=== PATIENT | male | born 1980 | race Caucasian/White ===

== ENCOUNTER 2018-04-17 14:46 | Emergency (ER) | payer OTHER ==
[2018-04-17 14:56] VITALS: BMI 25.8
--- NOTE | 2018-04-17 17:47 | PDOC ---
Attending Attestation - Resident Resident Name: CathieHetal - ED Attending Attestation I have performed the following: I have examined & evaluated the patient, The case was reviewed & discussed with the resident, I agree w/resident's findings & plan, Exceptions are as noted - HPI HPI: 04/17/18 17:45 37 M with no PMH presents to ED seeking detox from PCP. Pt states he is daily PCP user. Last use was this morning. Pt is accompanied by his mother, who reports that pt has two children and is unable to care for them while he is high. She reports that he behaves erratically when he smokes PCP. Pt denies any SI/HI/AVH. Denies any other substance use. - Physicial Exam PE: 04/17/18 17:46 GENERAL: Awake, alert, and fully oriented, in no acute distress. HEAD: No signs of trauma EYES: PERRLA, EOMI, sclera anicteric, conjunctiva clear ENT: Auricles normal inspection, hearing grossly normal, nares patent, oropharynx clear without exudates. Moist mucosa NECK: Nontender, no stepoffs, Normal ROM, supple, no lymphadenopathy, JVD, or masses LUNGS: Breath sounds equal, clear to auscultation bilaterally. No wheezes, and no crackles HEART: Regular rate and rhythm, normal S1 and S2, no murmurs, rubs or gallops ABDOMEN: Soft, nontender, normoactive bowel sounds. No guarding, no rebound. No masses EXTREMITIES: Normal range of motion, no edema. No clubbing or cyanosis. No cords, erythema, or tenderness NEUROLOGICAL: Cranial nerves II through XII intact. 5/5 strength and sensation in all extremities, Normal speech, normal gait, normal cerebellar function SKIN: Warm, Dry, normal turgor, no rashes or lesions noted. - Medical Decision Making 04/17/18 17:46 37 M presenting for PCP detox. Pt is clinically sober at this time, with no SI/ HI/AVH. - Will reach out to [facility] regarding detox 04/17/18 18:01 [facility] does not offer detox for PCP, pt will need to register for rehab Will reach out to other detox facilities in the area 04/17/18 18:49 Pt given resources for detox facilities Pt is well appearing, with normal vitals. Clinically stable for DC at this time. I discussed the physical exam findings, ancillary test results and final diagnoses with the patient. I answered all of the patient's questions. The patient was satisfied with the care received and felt comfortable with the discharge plan and treatment plan. The patient agrees to follow up with the primary care physician within 24-72 hours.
[2018-04-17 19:50] LABS: COCAINE, UR NEGATIVE ng/ml (CUTOFF=300); METHADONE, UR NEGATIVE ng/ml (CUTOFF=300); OPIATES, URI NEGATIVE ng/ml (CUTOFF=300); URINE AMPHETAMINES NEGATIVE ng/ml (CUTOFF=500); URINE BARBITURATES NEGATIVE ng/ml (CUTOFF=200); URINE BENZODIAZEPINES NEGATIVE ng/ml (CUTOFF=200)
--- NOTE | 2018-04-17 20:27 | PDOC ---
History of Present Illness - General Chief Complaint: Substance Abuse Stated Complaint: DETOX Time Seen by Provider: 04/17/18 16:59 History Source: Patient, Parent(s) (mother) Exam Limitations: No Limitations - History of Present Illness Initial Comments: 04/20/18 01:35 Pt is a 37yo M with no significant PMH presenting to ED with mother for detox. Per mother pt has been using PCP and has been "scaring the children and his ". Mother states he can get erratic and makes his family feel unsafe. Pt said he last used this morning. Denies SI/HI, hallucinations, chest pain, headache, SOB, syncope, palpitations, abdominal pain, n/v/d, IV drug use, alcohol use. Past History - Past Medical History Allergies/Adverse Reactions: Allergies Allergy/AdvReac Type Severity Reaction Status Date / Time No Known Allergies Allergy Verified 04/17/18 14:56 COPD: No Diabetes: No GI Disorders: No - Surgical History GI Surgery: No - Immunization History Immunization Up to Date: No - Suicide/Smoking/Psychosocial Hx Smoking History: Current every day smoker Have you smoked in the past 12 months: No Information on smoking cessation initiated: No Hx Alcohol Use: Yes Drug/Substance Use Hx: Yes Review of Systems - Review of Systems Constitutional: No: Symptoms Reported HEENTM: No: Symptoms Reported Respiratory: No: Symptoms reported Cardiac (ROS): No: Symptoms Reported ABD/GI: No: Symptoms Reported : No: Symptoms Reported Musculoskeletal: No: Symptoms Reported Integumentary: No: Symptoms Reported Neurological: No: Symptoms reported Psychiatric: No: Anxiety, Depression, Emotional Problems *Physical Exam - Vital Signs Last Vital Signs Temp Pulse Resp BP Pulse Ox 98.9 F 102 H 16 139/89 99 04/17/18 14:52 04/17/18 14:52 04/17/18 14:52 04/17/18 14:52 04/17/18 14:52 - Physical Exam General Appearance: Yes: Nourished, Appropriately Dressed, Disheveled (slightly desheveled) HEENT: positive: EOMI, NELLY, Normal ENT Inspection, Symmetrical, Pharynx Normal , Other (no nystagmus). negative: Scleral Icterus (R), Scleral Icterus (L) Neck: positive: Trachea midline, Supple. negative: Lymphadenopathy (R), Lymphadenopathy (L) Respiratory/Chest: positive: Lungs Clear, Normal Breath Sounds. negative: Crackles, Rales, Wheezing Cardiovascular: positive: Regular Rhythm, S1, S2, Tachycardia. negative: JVD, Murmur Vascular Pulses: Carotid (R): 2+, Carotid (L): 2+, Dorsalis-Pedis (R): 2+, Doralis-Pedis (L): 2+ Gastrointestinal/Abdominal: positive: Normal Bowel Sounds, Soft. negative: Distended, Guarding, Rebound, Tenderness Musculoskeletal: positive: Normal Inspection. negative: CVA Tenderness Extremity: positive: Normal Capillary Refill Integumentary: positive: Normal Color, Dry, Warm Neurologic: positive: refractory manager II-XII NML intact, Fully Oriented, Alert, Normal Mood/ Affect, Normal Response, Motor Strength 5/5 Moderate Sedation - Procedure Monitoring Vital Signs: Procedure Monitoring Vital Signs Temperature 98.9 F 04/17/18 14:52 Pulse Rate 102 H 04/17/18 14:52 Respiratory Rate 16 04/17/18 14:52 Blood Pressure 139/89 04/17/18 14:52 O2 Sat by Pulse Oximetry (%) 99 04/17/18 14:52 ED Treatment Course - ADDITIONAL ORDERS Additional order review: Laboratory Results 04/17/18 19:00 Opiates Screen Negative Methadone Screen Negative Barbiturate Screen Negative Ur Amphetamines Screen Negative MDMA (Ecstasy) Screen Negative Benzodiazepines Screen Negative Cocaine Screen Negative Medical Decision Making - Medical Decision Making 04/20/18 01:38 Pt is a 37yo M with no significant PMH presenting to ED with mother for detox. Does not appear to have signs of acute intoxication. Pt is alert and oriented. Utox ordered. Positive for marijuana and PCP. [facility] does not accept detox from PCP. Called [facility]. Accepts walk ins starting at 8am. Mother and patient agree to going to [facility]. Will DC. Given instructions on how to get to [facility]. and given strict return precautions. At this time mother states pt is not a threat to family members. 04/20/18 01:39 *DC/Admit/Observation/Transfer Diagnosis at time of Disposition: Substance use disorder - Discharge Dispostion Disposition: HOME Condition at time of disposition: Good Decision to Admit order: No - Referrals Referrals: Nir García [Primary Care Provider] - - Patient Instructions Additional Instructions: You were seen here today because you were interested in detox. I called [facility] and they take walk-ins every day at 8am. Please to to [address] [place] [address] at 8am. Please come back to the emergency room if you start to use again, if you develop fever, if you pass out, if you do not feel safe or if any new concerning symptom develops. - Post Discharge Activity
[2018-04-17 20:37] VITALS: BP 131/77; PULSE 98; TEMP 98.2
[2018-04-17 20:58] LABS: PHENCYCLIDINE,URINE POSITIVE ng/ml (CUTOFF=25)
== END 2018-04-17 20:37 | disposition home or self-care (01) ==
LOC: JER 14:46
DX: Z13.89 Encounter for screening for other disorder (principal)
CPT/HCPCS: 80307; 99282-25

== ENCOUNTER 2019-06-03 04:15 | Emergency (ER) | payer SELFPAY ==
[2019-06-03] MEDS ORDERED: LORazepam 2 MG/ML SDV VIAL ONE (04:22)
[2019-06-03] MEDS ORDERED: HALOPERIDOL LACTATE 5 MG/ML ONE (04:22)
[2019-06-03] MEDS ORDERED: HALOPERIDOL LACTATE 5 MG/ML IM ONE (04:23)
[2019-06-03] MEDS ORDERED: SODIUM CHLORIDE 1,000 ML IV STA (04:24)
--- NOTE | 2019-06-03 04:26 | PDOC ---
Attending Attestation - Resident Resident Name: Bismark Mosher - ED Attending Attestation I have performed the following: I have examined & evaluated the patient, The case was reviewed & discussed with the resident, I agree w/resident's findings & plan - HPI HPI: 06/03/19 04:44 see resident hpi - Physicial Exam PE: 06/03/19 04:44 see resident exam - Medical Decision Making 06/03/19 04:45 38-year-old male with altered mental status wandering around the streets and combative On arrival patient has visible nystagmus, he is argumentative Previous chart reviewed and patient does have a history of PCP abuse Patient began to remove clothing, aggressive towards staff and would not allow blood draw Patient sedated, plan for CT scan of the brain, labs to rule out rhabdomyolysis and reevaluation
[2019-06-03 04:30] VITALS: BMI 23.6
--- NOTE | 2019-06-03 04:40 | PDOC ---
History of Present Illness - General Chief Complaint: Alcohol intoxication Stated Complaint: INTOX Time Seen by Provider: 06/03/19 04:26 History Source: Patient, EMS Exam Limitations: No Limitations - History of Present Illness Initial Comments: 06/03/19 04:40 38 yo male pmh of substance abuse including PCP presents via EMS after being found wandering the streets tonight. Pt noted to become combative, [employer] escort pt to the ED. Pt AOX2, denies using any illicit drugs or alcohol tonight, not cooperative with questions or exam. ROS limited Past History - Past Medical History Allergies/Adverse Reactions: Allergies Allergy/AdvReac Type Severity Reaction Status Date / Time No Known Allergies Allergy Verified 06/03/19 04:30 COPD: No Diabetes: No GI Disorders: No - Surgical History GI Surgery: No - Immunization History Immunization Up to Date: No - Psycho Social/Smoking Cessation Hx Smoking History: Current some day smoker Have you smoked in the past 12 months: No Information on smoking cessation initiated: No Hx Alcohol Use: Yes Drug/Substance Use Hx: Yes Review of Systems - Review of Systems Able to Perform ROS?: No (AMS ) *Physical Exam - Vital Signs Last Vital Signs Temp Pulse Resp BP Pulse Ox 98.0 F 96 H 17 172/94 H 97 06/03/19 04:20 06/03/19 04:20 06/03/19 04:20 06/03/19 04:20 06/03/19 04:20 - Physical Exam General Appearance: Yes: Nourished, Appropriately Dressed. No: Apparent Distress HEENT: positive: EOMI, Normal ENT Inspection, Pharynx Normal, Other (rotary nystagmus) Neck: positive: Supple. negative: Carotid bruit Respiratory/Chest: positive: Lungs Clear, Normal Breath Sounds. negative: Respiratory Distress, Accessory Muscle Use, Rapid RR, Crackles, Rales, Rhonchi, Stridor, Wheezing Cardiovascular: positive: Regular Rhythm, Regular Rate, S1, S2. negative: Edema , JVD, Murmur Vascular Pulses: Dorsalis-Pedis (R): 4+, Doralis-Pedis (L): 4+ Gastrointestinal/Abdominal: positive: Flat, Soft. negative: Pulsatile Mass, Protuberent, Distended, Guarding, Rebound, Tenderness Musculoskeletal: negative: CVA Tenderness Extremity: positive: Normal Capillary Refill, Normal Inspection, Normal Range of Motion Integumentary: positive: Normal Color, Dry, Warm, Other (no signs of trauma to head or body ) Neurologic: positive: coppersmith apprentice II-XII NML intact, Alert, Motor Strength 5/5, Confused , Disoriented, Other (moving all extremities, equal bilateral pulses in upper and lower ext). negative: Fully Oriented, Normal Mood/Affect, Normal Response, Facial Droop, Sensory Deficit ED Treatment Course - LABORATORY CBC & Chemistry Diagram: 06/03/19 04:27 06/03/19 04:27 Medical Decision Making - Medical Decision Making 06/03/19 04:44 38 yo male pmh of substance abuse including PCP presents via EMS after being found wandering the streets tonight. Pt noted to become combative, [employer] escort pt to the ED. Pt AOX2, denies using any illicit drugs or alcohol tonight, not cooperative with questions or exam. ROS limited vitals stable Pt brought into resuscitation room immediately on arrival, undressed, vitals taken and IV line placed Pt not cooperative with exam, security called incase pt becomes combative again pt attempts to leave the room on multiple occasions, not cooperative with exam. Pt informed that chemical and physical restraints may be forced onto him if he continues to be uncooperative. Benadryl, haldol and ativan ordered and given 06/03/19 06:[address] head/C spine read CLinically has PCP intox will s/o to day team for further care and dispo Discharge - Discharge Information Problems reviewed: Yes Clinical Impression/Diagnosis: Intoxication Condition: Fair - Follow up/Referral - Patient Discharge Instructions - Post Discharge Activity
[2019-06-03 04:59] LABS: BASO % 1.3 % (0-2.0); EOS % 1.5 % (0-4.5); HEMATOCRIT 43.6 % (35.4-49); HEMOGLOBIN 14.3 GM/dL (11.7-16.9); LYMPH % 25.9 % (8-40); MCH 29.2 pg (25.7-33.7); MCHC 32.7 g/dl (32.0-35.9); MEAN CELL VOLUME 89.2 fl (80-96); MEAN PLT VOLUME 9.1 fl (7.5-11.1); MONO % 6.5 % (3.8-10.2); NEUT % 64.8 % (42.8-82.8); PLATELET COUNT 283 K/MM3 (134-434); RBC 4.89 M/mm3 (4.00-5.60); RDW 14.6 % (11.9-15.9)
[2019-06-03 05:24] LABS: INR 0.91 (0.83-1.09); PROTHROMBIN TIME (PATIENT) 10.7 SEC (9.7-13.0)
[2019-06-03 05:27] LABS: ACTIVATED PTT 29.1 SECONDS (25.2-36.5)
[2019-06-03 05:41] LABS: ALBUMIN 4.8 g/dl (3.4-5.0); ALK PHOS 80 U/L (45-117); ANION GAP 11 MMOL/L (8-16); BILIRUBIN,TOTAL 0.6 mg/dL (0.2-1); BLOOD UREA NITROGEN 12.1 mg/dL (7-18); CALCIUM 9.5 mg/dL (8.5-10.1); CHLORIDE 103 mmol/L (98-107); CO2 23 mmol/L (21-32); CREATININE 0.8 mg/dL (0.55-1.3); GLUCOSE,RANDOM 107 mg/dL (74-106); POTASSIUM 3.7 mmol/L (3.5-5.1); SGOT/AST 44 U/L (15-37); SGPT/ALT 39 U/L (13-61); SODIUM 138 mmol/L (136-145); TOT PROT 8.6 g/dl (6.4-8.2)
--- NOTE | 2019-06-03 07:14 | PDOC ---
*Physical Exam - Vital Signs Last Vital Signs Temp Pulse Resp BP Pulse Ox 97.4 F L 78 14 98/65 100 06/03/19 04:56 06/03/19 05:42 06/03/19 05:42 06/03/19 05:42 06/03/19 04:56 ED Treatment Course - LABORATORY CBC & Chemistry Diagram: 06/03/19 04:27 06/03/19 04:27 - ADDITIONAL ORDERS Additional order review: Laboratory Results 06/03/19 06/03/19 04:27 04:27 PT with INR 10.70 INR 0.91 PTT (Actin FS) 29.1 Sodium 138 Potassium 3.7 Chloride 103 Carbon Dioxide 23 Anion Gap 11 BUN 12.1 Creatinine 0.8 Est GFR (CKD-EPI)AfAm 129.51 Est GFR (CKD-EPI)NonAf 111.74 Random Glucose 107 H Calcium 9.5 Total Bilirubin 0.6 AST 44 H ALT 39 Alkaline Phosphatase 80 Creatine Kinase 370 H Creatine Kinase Index 1.3 CK-MB (CK-2) 5.0 H Troponin I < 0.02 Total Protein 8.6 H Albumin 4.8 06/03/19 04:27 RBC 4.89 MCV 89.2 MCHC 32.7 RDW 14.6 MPV 9.1 Neutrophils % 64.8 Lymphocytes % 25.9 Monocytes % 6.5 Eosinophils % 1.5 Basophils % 1.3 - Medications Given in the ED: ED Medications Discontinued Medications Generic Name Dose Route Start Last Admin Trade Name Freq PRN Reason Stop Dose Admin Diphenhydramine HCl 25 mg 06/03/19 04:29 06/03/19 04:40 Benadryl Injection - IVPUSH 06/03/19 04:30 25 mg ONCE ONE Administration Haloperidol 5 mg 06/03/19 04:23 06/03/19 04:40 Haldol Injection (Fast Acting) - IM 06/03/19 04:24 5 mg ONCE ONE Administration Sodium Chloride 1,000 mls @ 1,000 mls/hr 06/03/19 04:24 06/03/19 04:40 Normal Saline - IV 06/03/19 05:23 1,000 mls/hr ASDIR STA Administration Lorazepam 2 mg 06/03/19 04:23 06/03/19 04:40 Ativan Injection - IM 06/03/19 04:24 2 mg ONCE ONE Administration Medical Decision Making - Medical Decision Making 06/03/19 07:14 Received sign out from night team. 38yo M hx polysubstance abuse including PCP per chart review BIBA combative, found wandering streets, A&Ox2, uncooperative. Given benadryl, haldol, and ativan Labs reviewed. No concerning findings. EKG reviewed. No concerning findings. CTH/c-spine reviewed: no acute pathology Dispo: pending clinical sobriety and reassessment Pt seen and assessed at bedside. Sleeping comfortably, responsive to pain only, VSS. 06/03/19 09:38 Pt still sleeping comfortably, responsive to pain only, VSS. 06/03/19 10:14 Pt sleeping comfortable. Wakes with sternal rub. Responds to questions but with incoherent mumbling. VSS. 06/03/19 11:27 Pt alert, sitting up, comfortable, ambulates with steady gait, normal speech without slurring or mumbling, A&Ox3 (name, hospital, month), remembers doing PCP yesterday and going to mother's house but doesn't remember what happened last PM. Feels fine now, asymptomatic, denies all ROS, wants to go home. Clinically sober and safe for discharge. Pt states he has a PCP and can get home safely. Will discharge home with PCP f/u. Return precautions given. Pt understands all discharge instructions and all questions were answered. Discharge - Discharge Information Problems reviewed: Yes Clinical Impression/Diagnosis: Intoxication, PCP (phencyclidine) abuse Condition: Improved Disposition: HOME - Admission No - Follow up/Referral - Patient Discharge Instructions Additional Instructions: You have been seen in the Emergency Department for your PCP overdose. You recovered with rest. Follow-up with your primary care doctor within 1 week. As you know, PCP and other drug use is dangerous and can cause many dangerous health problems including but not limited to and permanent disability. Stop using drugs. Good luck on your recovery! Return to the ED immediately if you experience another overdose, chest pain, difficulty breathing, dizziness, or any other new or worsening symptom. - Post Discharge Activity
[2019-06-03 08:38] VITALS: BP 131/84; PULSE 80; TEMP 97.2
--- NOTE | 2019-06-03 10:33 | EKG ---
Test Reason : Blood Pressure : / mmHG Vent. Rate : 078 BPM Atrial Rate : 078 BPM P-R Int : 144 ms QRS Dur : 092 ms QT Int : 416 ms P-R-T Axes : 077 040 059 degrees QTc Int : 474 ms NORMAL SINUS RHYTHM NORMAL ECG NO PREVIOUS ECGS AVAILABLE Confirmed by Benigno Velazquez MD ([id number]) on 06/03/2019 10:32:58 AM Referred By: Confirmed By:Benigno Velazquez MD
== END 2019-06-03 11:31 | disposition home or self-care (01) ==
LOC: JER 04:15
PROC: 3E033GC Introduction of Other Therapeutic Substance into Peripheral Vein, Percutaneous Approach (ICD-10-PCS; principal; 2019-06-03)
PROC: 3E023NZ Introduction of Analgesics, Hypnotics, Sedatives into Muscle, Percutaneous Approach (ICD-10-PCS; 2019-06-03)
PROC: 3E023NZ Introduction of Analgesics, Hypnotics, Sedatives into Muscle, Percutaneous Approach (ICD-10-PCS; 2019-06-03)
DX: F10.120 Alcohol abuse with intoxication, uncomplicated (principal); F16.10 Hallucinogen abuse, uncomplicated; F17.210 Nicotine dependence, cigarettes, uncomplicated
CPT/HCPCS: 36415; 70450-TC; 72125-TC; 80053; 82550; 82553; 84484; 85025; 85610; 85730; 93005; 93010; 99285-25; J7030

== ENCOUNTER 2019-12-13 02:40 | Emergency (ER) | payer OTHER ==
[2019-12-13 02:46] VITALS: BMI 25.1
--- NOTE | 2019-12-13 02:51 | PDOC ---
History of Present Illness - General Chief Complaint: Alcohol intoxication Stated Complaint: ABD PAIN Time Seen by Provider: 12/13/19 02:51 History Source: Patient, EMS, Old Records Exam Limitations: No Limitations - History of Present Illness Initial Comments: 12/13/19 02:51 39M ETOH use disorder appears intoxicated, limiting HPI called ambulance for right groin/flank pain denies urinary sx no PSH no known history of hernia has never had pain like this before not worse with movement no injury to leg says he drinks 2 beers per night had 2 beers last night no N/V/C/D denies fevers, chills, chest pain, SOB denies syncope/fall Past History - Medical History Allergies/Adverse Reactions: Allergies Allergy/AdvReac Type Severity Reaction Status Date / Time No Known Allergies Allergy Verified 12/13/19 02:44 Home Medications: Ambulatory Orders NK [No Known Home Medication] 12/13/19 COPD: No Diabetes: No GI Disorders: No - Surgical History GI Surgery: No - Immunization History Immunization Up to Date: No - Psycho-Social/Smoking History Smoking History: Current every day smoker Have you smoked in the past 12 months: Yes Number of Cigarettes Smoked Daily: 10 Information on smoking cessation initiated: No - Substance Abuse Hx (Audit-C & DAST Scrn) How often the patient has a drink containing alcohol: 4 0r more times/wk Number of drinks the patient has on a typical day: 3 or 4 How often the patient has six or more drinks on one occasion: Never Score: In Men: 4 or > Positive; In Women: 3 or > Positive: 5 Screen Result (Pos requires Nsg. Audit-10AR): Positive In the last yr the pt used illegal drug/Rx for NonMed reason: No Score: Yes response is considered Positive: 0 Screen Result (Positive result requires Nsg. DAST-10): Negative Review of Systems - Review of Systems Able to Perform ROS?: Yes Constitutional: No: Chills, Diaphoresis, Fever, Malaise, Night Sweats HEENTM: No: Symptoms Reported Respiratory: No: Cough, Shortness of Breath, SOB with Exertion, SOB at Rest, Wheezing Cardiac (ROS): No: Chest Pain, Lightheadedness, Palpitations, Syncope ABD/GI: Yes: Abdominal cramping. No: Blood Streaked Bowels, Constipated, Diarrhea, Nausea, Poor Appetite, Poor Fluid Intake, Vomiting : No: Symptoms Reported Musculoskeletal: No: Symptoms Reported Integumentary: No: Symptoms Reported Neurological: No: Symptoms reported Endocrine: No: Symptoms Reported Hematologic/Lymphatic: No: Symptoms Reported All Other Systems: Reviewed and Negative *Physical Exam - Vital Signs Last Vital Signs Temp Pulse Resp BP Pulse Ox 97.6 F 63 17 132/89 98 12/13/19 02:45 12/13/19 02:45 12/13/19 02:45 12/13/19 02:45 12/13/19 02:45 - Physical Exam General Appearance: Yes: Nourished, Appropriately Dressed, Other (resting in bed, in NAD, mildly slurred speech). No: Apparent Distress HEENT: positive: EOMI, NELLY, Normal Voice, Symmetrical, Pharynx Normal, Hearing Grossly Normal. negative: Scleral Icterus (R), Scleral Icterus (L), Pharyngeal Erythema, Tonsillar Exudate, Tonsillar Erythema Neck: positive: Normal Thyroid, Supple. negative: Tender, Rigid, Decreased range of motion, Lymphadenopathy (R), Lymphadenopathy (L), Tender lateral, Tender midline Respiratory/Chest: positive: Lungs Clear, Normal Breath Sounds. negative: Chest Tender, Respiratory Distress, Accessory Muscle Use, Crackles, Rales, Rhonchi, Stridor, Wheezing Cardiovascular: positive: Regular Rhythm, Regular Rate. negative: Murmur, Tachycardia Gastrointestinal/Abdominal: positive: Normal Bowel Sounds, Flat, Soft. negative: Tender, Organomegaly, Pulsatile Mass, Guarding, Rebound Musculoskeletal: positive: Normal Inspection. negative: CVA Tenderness, CVA Tenderness (R), CVA Tenderness (L), Vertebral Tenderness Extremity: positive: Normal Capillary Refill, Normal Inspection, Normal Range of Motion, Pelvis Stable. negative: Tender, Pedal Edema, Swelling, Calf Tenderness Integumentary: positive: Normal Color, Dry, Warm. negative: Cold, Clammy, Diaphoresis Neurologic: positive: aviation electronic warfare operator II-XII NML intact, Fully Oriented, Alert, Motor Strength 5/5, Other (no asterixis). negative: Normal Mood/Affect, Normal Response ED Treatment Course - LABORATORY CBC & Chemistry Diagram: 12/13/19 04:45 12/13/19 06:30 - RADIOLOGY Radiograph Interpretation: 12/13/19 06:59 Alexsander Marks MD wrote on Dec 13, 2019 at 06:44 AM: Referring Physician: JEET HAMLIN RESIDENT Patient Name: SULAIMAN GUERRERO THIS IS A PRELIMINARY REPORT DATE OF SERVICE: 2019-12-13 06:09:40 IMAGES: [id number] EXAM: ABDOMEN \T\ PELVIS CT WITH IV CONTRAST One or more of the following dose reduction techniques was utilized: Automated exposure control, adjustment of the mA and or kVp according to patient's size, use of an iterative reconstruction technique. CTDIvol(mGy) = 0.14, 0.14, 7.64 Total DLP (mGycm) = 380.7 CONTRAST: 100 cc of Omnipaque 350 utilized IV. HISTORY: Right lower quadrant pain. 39-year-old male. COMPARISON: None. FINDINGS: The scanogram is nondiagnostic and utilized for anatomic location of scanning. Cardiac silhouette is normal in appearance. Lung bases are clear. Uniform attenuation and enhancement is seen throughout the liver, spleen and pancreas. No ductal dilatation, mass or cystic change. Normal gallbladder is present in the right upper quadrant. No adrenal masses. Good excretion of IV contrast by both kidneys is present without hydronephrosis, mass or cystic change. No retroperitoneal adenopathy or fibrosis. No abnormality of the aorta or IVC. Stomach, small bowel and colon show no evidence of bowel wall thickening. No acute inflammatory changes the right or left lower quadrant. No evidence of obstruction or ileus. The terminal ileum is normal in the right lower quadrant. Pelvic CT shows the appendix in the right lower quadrant to be normal in appearance. No diverticular disease. No acute inflammatory changes in the true pelvis. No pelvic adenopathy or free fluid in the true pelvis. The prostate gland and seminal vesicles are normal in appearance. Urinary bladder is normal in appearance. No evidence of distal ureterolithiasis or ureteral dilatation. The perivesicular and perirectal fat are well-preserved. No bone or surrounding soft tissue abnormality. IMPRESSION Normal CT of the abdomen and pelvis. No evidence of bowel obstruction or ileus. No acute inflammatory changes in the right or left lower quadrants. The appendix is well seen. One or more of the following dose reduction techniques were used: automated exposure control, adjustment of the mA and/or kV according to patient size, use of iterative reconstructive technique. Medical Decision Making - Medical Decision Making 12/13/19 05:34 Patient intoxicated with PMH EtOH use disorder, complaining of right abdomen/groin pain. Non-tender on exam of groin and testicles, no obvious hernia, resting comfortably in bed in NAD. Low suspicion of withdrawal, no symptoms at this time, still intoxicated. VSS. Ddx includes hernia vs. epididymitis vs. renal calculus vs. appendicitis vs. GB pathology. Ordering CBC/CMP/lipase/UA/UC with CTAP with IV contrast. Also RUQ US in the AM for eval GB pathology given R-sided pain. Labs notable for: - CBC WNL - lipase WNL - K hemolyzed, sending repeat - remaining labs unremarkable CTAP unremarkable for acute pathology. 12/13/19 07:20 Signed out to day team. Plan to f/u US and repeat K. Discharge - Discharge Information Problems reviewed: Yes Clinical Impression/Diagnosis: Intoxication Abdominal pain Qualifiers: Abdominal location: right upper quadrant Qualified Code(s): R10.11 - Right upper quadrant pain Condition: Improved Disposition: HOME - Follow up/Referral - Patient Discharge Instructions Additional Instructions: You were seen in the ER for abdominal pain. Your EKG, labs, and imaging did not show any emergent problem. You should follow up with your primary doctor within one week. Please return to the ER for new, persistent, or worsening symptoms, fever, vomiting, or any other problem. - Post Discharge Activity
--- NOTE | 2019-12-13 02:53 | PDOC ---
Attending Attestation - Resident Resident Name: Pedro Lobo - ED Attending Attestation I have performed the following: I have examined & evaluated the patient, The case was reviewed & discussed with the resident, I agree w/resident's findings & plan - HPI HPI: 12/13/19 05:02 Pt comes with right sided abd pain. Pt is an alcoholic. Afebrile - Physicial Exam PE: 12/13/19 05:03 Pt has RUQ pain. Enlarged liver with tip beneath the right costal margin 12/13/19 19:48 AGree with resident exam - Medical Decision Making 12/13/19 05:04 Pt will have labs, sono of the RUQ and CT as needed. 12/13/19 05:06 Pt will be signed out to the day ER team to continue his workup. 12/13/19 06:58 chem hemolyzed; it was repeated Discharge - Discharge Information Problems reviewed: Yes Clinical Impression/Diagnosis: Intoxication Abdominal pain Qualifiers: Abdominal location: right upper quadrant Qualified Code(s): R10.11 - Right upper quadrant pain Condition: Improved Disposition: HOME - Follow up/Referral - Patient Discharge Instructions Additional Instructions: You were seen in the ER for abdominal pain. Your EKG, labs, and imaging did not show any emergent problem. You should follow up with your primary doctor within one week. Please return to the ER for new, persistent, or worsening symptoms, fever, vomiting, or any other problem. - Post Discharge Activity
[2019-12-13 05:07] LABS: BASO % 1.4 % (0-2.0); EOS % 5.1 % (0-4.5); HEMOGLOBIN 14.1 GM/dL (11.7-16.9); LYMPH % 38.7 % (8-40); MCH 30.5 pg (25.7-33.7); MCHC 33.5 g/dl (32.0-35.9); MEAN CELL VOLUME 90.8 fl (80-96); MEAN PLT VOLUME 8.2 fl (7.5-11.1); MONO % 10.3 % (3.8-10.2); NEUT % 44.5 % (42.8-82.8); PLATELET COUNT 258 K/MM3 (134-434); RBC 4.62 M/mm3 (4.00-5.60); RDW 13.9 % (11.9-15.9); WHITE BLOOD COUNT 5.6 K/mm3 (4.0-10.0)
[2019-12-13 07:10] LABS: ALBUMIN 4.2 g/dl (3.4-5.0); BILIRUBIN,TOTAL 0.2 mg/dL (0.2-1); BLOOD UREA NITROGEN 13.7 mg/dL (7-18); CALCIUM 8.6 mg/dL (8.5-10.1); CREATININE 0.9 mg/dL (0.55-1.3); TOT PROT 7.9 g/dl (6.4-8.2)
--- NOTE | 2019-12-13 08:37 | PDOC ---
*Physical Exam - Vital Signs Last Vital Signs Temp Pulse Resp BP Pulse Ox 97.6 F 80 18 117/76 97 12/13/19 02:45 12/13/19 06:36 12/13/19 06:36 12/13/19 06:36 12/13/19 06:36 - Physical Exam 12/13/19 08:35 Repeat K normal. No acute findings on CT A/P or abdominal ultrasound. Patient still has RUQ tenderness, but abdomen is soft without guarding or rebound. EKG: NSR, rate 61, normal axis and intervals, no ischemic changes. AAOx3, speaking full sentences, tolerating PO, walking in straight line. No tremors DC home 12/13/19 08:37 12/13/19 08:44 12/13/19 16:09 ED Treatment Course - LABORATORY CBC & Chemistry Diagram: 12/13/19 04:45 12/13/19 06:30 - ADDITIONAL ORDERS Additional order review: Laboratory Results 12/13/19 12/13/19 06:30 04:45 Sodium 141 Cancelled Potassium 4.0 Cancelled Chloride 105 Cancelled Carbon Dioxide 31 Cancelled Anion Gap 6 L Cancelled BUN 13.7 Cancelled Creatinine 0.9 Cancelled Est GFR (CKD-EPI)AfAm 122.52 Cancelled Est GFR (CKD-EPI)NonAf 105.71 Cancelled Random Glucose 82 Cancelled Calcium 8.6 Cancelled Total Bilirubin 0.2 Cancelled AST 38 H Cancelled ALT 53 Cancelled Alkaline Phosphatase 64 Cancelled Total Protein 7.9 Cancelled Albumin 4.2 Cancelled Lipase 115 Cancelled 12/13/19 04:45 RBC 4.62 MCV 90.8 MCHC 33.5 RDW 13.9 MPV 8.2 Neutrophils % 44.5 D Lymphocytes % 38.7 D Monocytes % 10.3 H Eosinophils % 5.1 H D Basophils % 1.4 Discharge - Discharge Information Problems reviewed: Yes Clinical Impression/Diagnosis: Intoxication Abdominal pain Qualifiers: Abdominal location: right upper quadrant Qualified Code(s): R10.11 - Right upper quadrant pain Condition: Improved Disposition: HOME - Admission No - Follow up/Referral - Patient Discharge Instructions Additional Instructions: You were seen in the ER for abdominal pain. Your EKG, labs, and imaging did not show any emergent problem. You should follow up with your primary doctor within one week. Please return to the ER for new, persistent, or worsening symptoms, fever, vomiting, or any other problem. - Post Discharge Activity
[2019-12-13 09:17] VITALS: BP 104/73; PULSE 72; TEMP 97.8
--- NOTE | 2019-12-15 11:30 | EKG ---
Test Reason : Blood Pressure : / mmHG Vent. Rate : 061 BPM Atrial Rate : 061 BPM P-R Int : 176 ms QRS Dur : 094 ms QT Int : 412 ms P-R-T Axes : 074 030 063 degrees QTc Int : 414 ms NORMAL SINUS RHYTHM NORMAL ECG WHEN COMPARED WITH ECG OF 03-JUN-2019 04:49, NO SIGNIFICANT CHANGE WAS FOUND Confirmed by DYAN PARIS MD ([id number]) on 12/15/2019 11:30:34 AM Referred By: Confirmed By:DYAN PARIS MD
== END 2019-12-13 10:00 | disposition home or self-care (01) ==
LOC: JER 02:40
DX: F19.120 Other psychoactive substance abuse with intoxication, uncomplicated (principal); R10.11 Right upper quadrant pain
CPT/HCPCS: 36415; 74177-TC; 76705-TC; 80048; 80053; 83690; 85025; 93005; 93010; 99284-25; Q9967